=== PATIENT | male | born 1945 | race Caucasian/White ===

== ENCOUNTER 2021-08-30 13:13 | Emergency (ER) | payer MEDICARE ==
[~2021-08-30] VITALS: Ht 165.1 cm; Wt 65.9 kg
[2021-08-30 13:44] VITALS: BP 156/93
[2021-08-30] MEDS ORDERED: TETRAcaine 0.5% ophthalmic drops 15ml EACHEYE ONE (16:35)
[2021-08-30] MEDS ORDERED: fluorescein sod 1mg ophthalmic strip LEFTEYE ONE (16:35)
[2021-08-30] MEDS ORDERED: proparacaine 0.5% ophthalmic drops 15ml EACHEYE ONE (16:55)
--- NOTE | 2021-08-30 17:02 | NUR ---
TOPICAL MEDS PLACED BY [facility]
[2021-08-30] MEDS ORDERED: ERYT1OIN6 LEFTEYE (18:15)
== END 2021-08-30 18:34 | disposition home or self-care (01) ==
LOC: ER 13:13
DX: H10.9 Unspecified conjunctivitis (principal); I10 Essential (primary) hypertension; Z86.73 Personal history of transient ischemic attack (TIA), and cerebral infarction without residual deficits
CPT/HCPCS: 99283; J3490

== ENCOUNTER 2023-08-20 09:55 | Day surgery (SDC) | payer MEDICARE, MEDICAID ==
[~2023-08-20] VITALS: Ht 165.1 cm; Wt 78.8 kg
[2023-08-20] VITALS (8 sets, daily range): BP systolic 100–131; BP diastolic 49–74; PULSE 60–77; RESP 16; TEMP 98; O2SAT 92–98
[2023-08-20] MEDS ORDERED: ICOS1CAP PO (10:43)
[2023-08-20] MEDS ORDERED: CETI10TA14 PO (10:43)
[2023-08-20] MEDS ORDERED: AMLO-381 PO (10:43)
[2023-08-20] MEDS ORDERED: OMEG-5 PO (10:43)
[2023-08-20] MEDS ORDERED: ROSU20TA73 PO (10:43)
[2023-08-20] MEDS ORDERED: MULT-1085 PO (10:43)
[2023-08-20] MEDS ORDERED: CLOP75TA34 PO (10:43)
[2023-08-20] MEDS ORDERED: FERR325T28 PO (10:43)
[2023-08-20] MEDS ORDERED: FENO160T PO (10:43)
[2023-08-20] MEDS ORDERED: FAMO20TA8 PO (10:43)
[2023-08-20 10:48] LABS: BASOPHILS # (AUTO) 0.1 X10'3 (0-0.2); BASOPHILS % (AUTO) 0.7 % (0-1); EOSINOPHILS # (AUTO) 0.2 X10'3 (0-0.9); EOSINOPHILS % (AUTO) 2.2 % (0-6); HEMATOCRIT 35.1 % (42.0-52.0); HEMOGLOBIN 11.9 g/dl (14.0-17.9); LYMPHOCYTES # (AUTO) 3.5 X10'3 (1.1-4.8); LYMPHOCYTES % (AUTO) 41.6 % (21-51); MEAN CORPUSCULAR HEMOGLOBIN 30.1 PG (27.0-31.0); MEAN CORPUSCULAR HGB CONC 33.7 g/dL (33.0-36.5); MEAN CORPUSCULAR VOLUME 89.3 FL (78-98); MEAN PLATELET VOLUME 7.1 FL (7.4-10.4); MONOCYTES # (AUTO) 0.6 X10'3 (0-0.9); MONOCYTES % (AUTO) 7.6 % (2-12); NEUTROPHILS % (AUTO) 47.9 % (42-75); PLATELET COUNT 235 X10'3 (140-440); RED BLOOD COUNT 3.94 X10'6 (4.70-6.10); RED CELL DISTRIBUTION WIDTH 13.5 % (11.5-14.5); WHITE BLOOD COUNT 8.4 X10'3 (4.5-11.0)
[2023-08-20 10:59] LABS: APTT 24 SECONDS (22-32); PROTHROMBIN TIME 10.9 SECONDS (9.0-12.0)
[2023-08-20 11:03] LABS: ALBUMIN 4.1 G/DL (3.4-5.0); ANION GAP 9 (8-16); BLOOD UREA NITROGEN 32 MG/DL (7-18); BUN/CREATININE RATIO 19.9 (10.0-20.0); CALCIUM 8.9 MG/DL (8.5-10.1); CHLORIDE 104 MMOL/L (99-107); CHOL/HDL RATIO 3.2 (0.00-4.99); CHOLESTEROL 136 MG/DL (0-200); CREATININE 1.61 MG/DL (0.60-1.10); GLUCOSE 89 MG/DL (70-104); HDL CHOLESTEROL 42 MG/DL (35-60); LDL CHOLESTEROL 68 MG/DL (50-100); POTASSIUM 4.3 MMOL/L (3.5-5.1); SODIUM 136 MMOL/L (135-145); TRIGLYCERIDES 127 MG/DL (20-135); eCRCL 33 ML/MIN; eGFR 42 ML/MIN
[2023-08-20] MEDS: diphenhydrAMINE 25mg capsule PO PRN (11:17)
[2023-08-20] MEDS: LORazepam 0.5 MG tablet PO PRN (11:17)
[2023-08-20] MEDS: normal saline 1,000 ML IV SCH (11:21)
[2023-08-20] MEDS ORDERED: LIDOcaine 1% (10mg/ml) 2ml vial ONE (12:56)
[2023-08-20] MEDS ORDERED: verapamil 2.5 mg/ml inj IV ONE (12:56)
[2023-08-20] MEDS ORDERED: heparin 1,000unit/ml 10ml vial 10 ML ONE (12:57)
[2023-08-20] MEDS ORDERED: midazolam 1 mg/ML 2ml injection ONE (12:57)
[2023-08-20] MEDS ORDERED: iohexol 350MG/ML 100ml bottle IV ONE (12:57)
[2023-08-20] MEDS ORDERED: fentaNYL/PF 50MCG/1 ML 2ML syringe ONE (12:57)
[2023-08-20] MEDS ORDERED: nitroGLYCERIN 500mcg/5mL D5W 5 ML IV ONE (12:58)
[2023-08-20] MEDS ORDERED: ondansetron/PF 4mg/2ml inj IV PRN (15:20)
[2023-08-20] MEDS ORDERED: HYDROcodone/acetaminophen 10/325mg tab PO PRN (15:20)
[2023-08-20] MEDS ORDERED: proCHLORperazine 10 MG/2 ml inj IV PRN (15:20)
[2023-08-20] MEDS ORDERED: HYDROcodone/acetaminophen 5mg/325mg tablet PO PRN (15:20)
[2023-08-20] MEDS ORDERED: OXAZEpam 15mg capsule PO PRN (15:20)
== END 2023-08-20 16:35 | disposition home or self-care (01) ==
LOC: SSTAY O 09:55
PROVIDERS: ATTEND Student in an Organized Health Care Education/Training Program
DX: R94.39 Abnormal result of other cardiovascular function study (principal); I25.10 Atherosclerotic heart disease of native coronary artery without angina pectoris; I10 Essential (primary) hypertension; E78.00 Pure hypercholesterolemia, unspecified; J44.9 Chronic obstructive pulmonary disease, unspecified; Z86.73 Personal history of transient ischemic attack (TIA), and cerebral infarction without residual deficits; Z87.891 Personal history of nicotine dependence; Z79.82 Long term (current) use of aspirin; Z79.02 Long term (current) use of antithrombotics/antiplatelets; Z79.899 Other long term (current) drug therapy; Z88.8 Allergy status to other drugs, medicaments and biological substances
CPT/HCPCS: 36415; 80048; 80061; 85025; 85610; 85730; 93005; 93458; 99152; J1644; J2250; J3010; J3490; J7030; Q0163; Q9967; A6258; A6402; C1894